=== PATIENT | female | born 1995 | race Caucasian/White ===

== ENCOUNTER 2021-02-26 13:05 | Emergency (ER) | payer MEDICAID ==
[~2021-02-26] VITALS: Ht 152.4 cm; Wt 72.0 kg
[2021-02-26 13:50] LABS: BASOPHILS % 0.3 % (0.0-2.0); EOSINOPHILS % 0.9 % (0.0-5.0); HEMATOCRIT. 38.7 % (36.0-48.0); HEMOGLOBIN. 13.4 g/dL (12.0-16.0); MEAN CORPUSCULAR HEMOGLOBIN 32.1 pg (28.0-32.0); MEAN CORPUSCULAR VOLUME 92.3 fL (81.0-99.0); MEAN PLATELET VOLUME 7.5 fl (7.4-10.4); MONOCYTES % 4.3 % (2.0-8.0); NEUTROPHILS % 71.5 % (40.0-76.0); PLATELET 294 x1000/uL (130-400); RED BLOOD CELL COUNT 4.19 mill/uL (4.2-5.4); RED CELL DISTRIBUTION WIDTH 12.7 % (11.6-14.6)
[2021-02-26 13:56] LABS: CHLORIDE 106 mEq/L (98-107)
[2021-02-26 14:19] LABS: B-HCG QUANTITATIVE 163729 mIU/mL (<3)
[2021-02-26 14:53] LABS: CLARITY URINE CLEAR (CLEAR); COLOR URINE YELLOW (YELLOW); KETONES URINE TRACE (NEGATIVE); LEUKOCYTE ESTERASE URINE NEGATIVE (NEGATIVE); NITRITE URINE NEGATIVE (NEGATIVE); OCCULT BLOOD URINE NEGATIVE (NEGATIVE); PROTEIN URINE NEGATIVE (NEGATIVE); SPECIFIC GRAVITY URINE 1.007 (1.005-1.030); UROBILINOGEN URINE 0.2 E.U./dL (0.2-1.0)
[2021-02-26 14:56] VITALS: BP 103/61
== END 2021-02-26 15:28 | disposition home or self-care (01) ==
LOC: ER 13:05
DX: O26.891 Other specified pregnancy related conditions, first trimester (principal); R10.9 Unspecified abdominal pain; Z3A.13 13 weeks gestation of pregnancy
CPT/HCPCS: 36415; 76801; 80053; 81003; 81025; 84702; 85025; 99284

== ENCOUNTER 2022-07-21 07:32 | Emergency (ER) | payer MEDICAID ==
[~2022-07-21] VITALS: Ht 160 cm; Wt 73.0 kg
[2022-07-21] MEDS ORDERED: IBUPROFEN 400MG TABLET PO ONE (08:30)
[2022-07-21 08:46] VITALS: BP 117/69
[2022-07-21] MEDS ORDERED: SODIUM CHLORIDE 0.9% 1,000 ML IV ONE (10:15)
[2022-07-21] MEDS ORDERED: CEPHALEXIN 250MG CAPSULE PO ONE (10:30)
[2022-07-21 11:33] LABS: BASOPHILS % 0.2 % (0.0-2.0); EOSINOPHILS % 0.5 % (0.0-5.0); HEMATOCRIT. 41.8 % (36.0-48.0); HEMOGLOBIN. 14.1 g/dL (12.0-16.0); LYMPHOCYTES % 10.8 % (20.0-50.0); MEAN CORPUSCULAR HEMOGLOBIN 30.7 pg (28.0-32.0); MEAN CORPUSCULAR VOLUME 91.1 fL (81.0-99.0); MONOCYTES % 2.6 % (2.0-8.0); NEUTROPHILS % 85.9 % (40.0-76.0); PLATELET 321 x1000/uL (130-400); RED BLOOD CELL COUNT 4.59 mill/uL (4.2-5.4); RED CELL DISTRIBUTION WIDTH 12.9 % (11.6-14.6)
[2022-07-21 11:43] LABS: CHLORIDE 106 mEq/L (98-107)
[2022-07-21] MEDS ORDERED: CEPH500C2 PO ×3 (13:25→13:27)
== END 2022-07-21 14:16 | disposition home or self-care (01) ==
LOC: ER 07:32
DX: N61.0 Mastitis without abscess (principal)
CPT/HCPCS: 36415; 76641; 80053; 81025; 83605; 85025; 85651; 87040; 96360; 99284; J7030